=== PATIENT | female | born 1975 | race Caucasian/White ===

== ENCOUNTER 2017-12-12 13:39 | Emergency (ER) | payer SELFPAY ==
[~2017-12-12] VITALS: Ht 165.1 cm; Wt 71.2 kg
[2017-12-12 14:20] LABS: BASOPHILS % (AUTO) 0.4 % (0.0-2.0); EOSINOPHILS # (AUTO) 0.1 /CMM (0.0-0.7); EOSINOPHILS % (AUTO) 0.7 % (0.0-6.0); HEMATOCRIT 35 % (33-45); HEMOGLOBIN 12.1 g/dL (11.5-14.8); LYMPHOCYTES # (AUTO) 2.1 /CMM (0.8-4.8); MEAN CORPUSCULAR HEMOGLOBIN 33 PG (26.0-33.0); MEAN CORPUSCULAR HGB CONC 35 g/dl (31.0-36.0); MEAN CORPUSCULAR VOLUME 96 fL (82-100); MONOCYTES # (AUTO) 0.6 /CMM (0.1-1.30); NEUTROPHILS # (AUTO) 5.5 /CMM (1.8-8.9); NEUTROPHILS % (AUTO) 66.9 % (43.0-81.0); PLATELET COUNT (AUTO) 282 /CMM (150-450); RDW COEFFICIENT OF VARIATION 12.5 (11.5-15.0); RED BLOOD CELL COUNT(AUTO) 3.67 MIL/uL (4.0-5.2); WHITE BLOOD COUNT (AUTO) 8.3 K/uL (4.3-11.0)
--- NOTE | 2017-12-12 14:26 | NUR ---
42 yo female bb ra from [employer]. patient is a/o x 3, admits to ETOH drinking. patient assisted to er bed, skin warm and dry, resp even and unlabored.awaiting orders from provider, will continue to monitor
--- NOTE | 2017-12-12 14:28 | NUR ---
AT [facility]
[2017-12-12 14:34] LABS: ALBUMIN 4.1 g/dL (3.4-5.0); BILIRUBIN,TOTAL 0.1 mg/dL (0.2-1.0); CALCIUM, SERUM 9.2 mg/dL (8.5-10.1); CREATININE 0.7 mg/dL (0.6-1.3); SALICYLATE 3.3 mg/dL (2.8-20.0); TOTAL PROTEIN, SERUM 7.4 g/dL (6.4-8.2)
[2017-12-12 14:37] LABS: POTASSIUM 2.8 mmol/L (3.5-5.1)
[2017-12-12] MEDS ORDERED: HALOPERIDOL LACTATE INJ 5 MG/ML VIAL ONE (17:39)
--- NOTE | 2017-12-12 17:49 | NUR ---
VITAL SIGNS UPDATED.
--- NOTE | 2017-12-12 17:49 | NUR ---
pt is yelling nonsensical words at [facility] staff. MD Harris notified. per MD Harris admin 5m gene IM to patient. medicated pateint as ordered
--- NOTE | 2017-12-12 17:50 | NUR ---
FC INITIATED. URINE SAMPLE OBTAINED, SENT.
[2017-12-12] MEDS ORDERED: HALOPERIDOL LACTATE INJ 5 MG/ML VIAL IM ONE (18:00)
[2017-12-12 18:04] LABS: APPEARANCE,URINE Clear (CLEAR); BILIRUBIN,URINE Negative (NEGATIVE); BLOOD, URINE Negative Ery/uL (NEGATIVE); COLOR,URINE Yellow (YELLOW); KETONES,URINE Negative (NEGATIVE); LEUKOCYTE ESTERASE ,URINE Negative (NEGATIVE); NITRITE, URINE Negative (NEGATIVE); PROTEIN,URINE Negative (NEGATIVE); UGLUCOSE Negative (NEGATIVE); UROBILINOGEN,URINE 0.2 EU/dL (0.2)
--- NOTE | 2017-12-13 01:21 | NUR ---
PATIENT IS RESTING IN ER BED, NO DISTRESS NOTED, SKIN WARM AND DRY. WILL CONTINUE TO MONITOR
--- NOTE | 2017-12-13 01:57 | NUR ---
PATIENT AMBULATED TO ER RESTROOM WITH STEADY GAIT
[2017-12-13 02:34] VITALS: BP 110/68
== END 2017-12-13 02:35 | disposition home or self-care (01) ==
LOC: ER 13:42
DX: F10.129 Alcohol abuse with intoxication, unspecified (principal); E87.6 Hypokalemia
CPT/HCPCS: 36415; 80048; 80076; 80305; 80329; 81001; 84703; 85025; 96372; 99284; A4606; G0480 ×2; J1630; Z7610; 81000-TC